=== PATIENT | male | born 1960 | race Caucasian/White ===

== ENCOUNTER 2021-08-25 12:43 | Emergency (ER) | payer MEDICARE, MEDICAID ==
[~2021-08-25] VITALS: Ht 172.7 cm; Wt 72.6 kg
[2021-08-25] MEDS ORDERED: ALBUTEROL SULFATE 2.5 MG/3 ML NEBU ONE (13:10)
[2021-08-25] MEDS ORDERED: IPRATROPIUM BROMIDE 0.5 MG/2.5 ML NEBU ONE (13:10)
[2021-08-25] MEDS ORDERED: IPRATROPIUM BROMIDE 0.5 MG/2.5 ML NEBU NEB ONE (13:15)
[2021-08-25] MEDS ORDERED: ALBUTEROL SULFATE 2.5 MG/3 ML NEBU NEB ONE (13:15)
--- NOTE | 2021-08-25 13:17 | NUR ---
PT IS IN ROOM #1B. DR LLANES EVALUATED THE PT.
[2021-08-25] MEDS ORDERED: AZIT250T13 PO (14:39)
--- NOTE | 2021-08-25 14:58 | NUR ---
PT WAS D/C'd TO HOME. D/C INSTRUCTIONS GIVEN TO THE PT BY DR LLANES.
[2021-08-25 15:01] VITALS: BP 142/75
== END 2021-08-25 15:02 | disposition home or self-care (01) ==
LOC: ER 12:43
DX: R05.9 Cough, unspecified (principal); Z20.822 Contact with and (suspected) exposure to COVID-19; G40.909 Epilepsy, unspecified, not intractable, without status epilepticus; I10 Essential (primary) hypertension; Z86.73 Personal history of transient ischemic attack (TIA), and cerebral infarction without residual deficits
CPT/HCPCS: 71045; 87400; A4663; J3590